=== PATIENT | female | born 1990 | race Caucasian/White ===

== ENCOUNTER 2017-01-16 18:58 | Emergency (ER) | payer MEDICAID ==
--- NOTE | ~2017-01-16 | ER ---
PATIENT'S NAME: MARIELOS ERAZO [facility] AGE: 26 Y [address] ROOM: [place] [address] LOCATION: ED ADMIT DATE: 01/16/2017 ER/Outpatient Report DISCHARGE DATE: 01/16/2017 FAMILY PHYSICIAN: PHYSICIAN, NO ATTENDING PHYSICIAN: Verena Shore Time of Arrival: 1904 hours. Time of Exam: 1904 hours. CHIEF COMPLAINT: Tooth pain. HISTORY OF PRESENT ILLNESS: The patient states 3 days ago developed pain of the left lower jaw posterior area by where her wisdom teeth are. States that she has had pain like this before, but it has been at least 5 years ago. She has taken Tylenol and ibuprofen. Had some tramadol left over at home, she has tried that, has not gotten any relief of it. Feels as though she has swelling of that lower jaw and aches all over. She denies having any trauma. CURRENT ALLERGIES: On her chart and reviewed by me. MEDICATIONS: On her chart and reviewed by me. PAST MEDICAL HISTORY: Benign. PAST SURGERIES: and tonsillectomy. SOCIAL HISTORY: She does smoke 1/10th of a pack per day. Denies use of drugs. Drinks alcohol on a social basis. REVIEW OF SYSTEMS: All negative other than those mentioned in the HPI. PHYSICAL EXAMINATION: VITAL SIGNS: She weighed 59.2 kg. Blood pressure 103/55, pulse 64, respirations 16, temperature of 97.3, and O2 saturation was 96% on room air. GENERAL: She is awake, alert, and oriented x4. SKIN: [place], warm, and dry. RESPIRATIONS: Even and nonlabored. TMs are injected bilaterally. Nasal is PATIENT'S NAME: MARIELOS ERAZO [facility] AGE: 26 Y [address] ROOM: [place] [address] LOCATION: [facility] ADMIT DATE: 01/16/2017 ER/Outpatient Report DISCHARGE DATE: 01/16/2017 FAMILY PHYSICIAN: PHYSICIAN, NO ATTENDING PHYSICIAN: Verena Shore boggy. Oropharynx, posterior pharynx is clear. She does have some swelling of the posterior gum area on the left lower. Minimal redness noted. IMPRESSION: Tooth pain, probable infection. PLAN: Home, rest, fluids. Ice to the jaw area. Prescription was written for doxycycline for antibiotic and [place] for pain. If her symptoms do not improve in the next 2-3 days, she is to follow up with her primary provider or see a dentist. She is welcome to return to the ER as needed. She verbalized understanding. CESAR HOYT APRN FOR [facility]/bear /[id number] d: 01/17/17 0016 t: 01/20/17 1426, OUTPATIENT REPORT
--- NOTE | ~2017-01-16 | ER ---
PATIENT'S NAME: MARIELOS ERAZO [facility] AGE: 26 Y [address] ROOM: [place] [address] LOCATION: ED ADMIT DATE: 01/16/2017 ER/Outpatient Report DISCHARGE DATE: 01/16/2017 FAMILY PHYSICIAN: PHYSICIAN, NO ATTENDING PHYSICIAN: Verena Shore Time of Arrival: 1904 hours. Time of Exam: 1904 hours. CHIEF COMPLAINT: Tooth pain. HISTORY OF PRESENT ILLNESS: The patient states 3 days ago developed pain of the left lower jaw posterior area by where her wisdom teeth are. States that she has had pain like this before, but it has been at least 5 years ago. She has taken Tylenol and ibuprofen. Had some tramadol left over at home, she has tried that, has not gotten any relief of it. Feels as though she has swelling of that lower jaw and aches all over. She denies having any trauma. CURRENT ALLERGIES: On her chart and reviewed by me. MEDICATIONS: On her chart and reviewed by me. PAST MEDICAL HISTORY: Benign. PAST SURGERIES: and tonsillectomy. SOCIAL HISTORY: She does smoke 1/10th of a pack per day. Denies use of drugs. Drinks alcohol on a social basis. REVIEW OF SYSTEMS: All negative other than those mentioned in the HPI. PHYSICAL EXAMINATION: VITAL SIGNS: She weighed 59.2 kg. Blood pressure 103/55, pulse 64, respirations 16, temperature of 97.3, and O2 saturation was 96% on room air. GENERAL: She is awake, alert, and oriented x4. SKIN: [place], warm, and dry. RESPIRATIONS: Even and nonlabored. TMs are injected bilaterally. Nasal is PATIENT'S NAME: MARIELOS ERAZO [facility] AGE: 26 Y [address] ROOM: [place] [address] LOCATION: [facility] ADMIT DATE: 01/16/2017 ER/Outpatient Report DISCHARGE DATE: 01/16/2017 FAMILY PHYSICIAN: PHYSICIAN, NO ATTENDING PHYSICIAN: Verena Shore boggy. Oropharynx, posterior pharynx is clear. She does have some swelling of the posterior gum area on the left lower. Minimal redness noted. IMPRESSION: Tooth pain, probable infection. PLAN: Home, rest, fluids. Ice to the jaw area. Prescription was written for doxycycline for antibiotic and [place] for pain. If her symptoms do not improve in the next 2-3 days, she is to follow up with her primary provider or see a dentist. She is welcome to return to the ER as needed. She verbalized understanding. CESAR HOYT APRN FOR [facility]/bear /[id number] d: 01/17/17 0016 t: 04/08/17 1455, OUTPATIENT REPORT
== END 2017-01-16 19:19 | disposition disaster alternative care site (69) ==
LOC: GMED 18:58
DX: K08.89 Other specified disorders of teeth and supporting structures (principal); F17.210 Nicotine dependence, cigarettes, uncomplicated; Z90.89 Acquired absence of other organs; Z88.0 Allergy status to penicillin; Z88.1 Allergy status to other antibiotic agents; Z79.899 Other long term (current) drug therapy